=== PATIENT | male | born 1980 | race Hispanic/Latino ===

== ENCOUNTER 2018-07-23 05:08 | Emergency (ER) | payer SELFPAY ==
[2018-07-23] MEDS ORDERED: METHYLPREDNISOLONE 125 MG INJ ONE (05:38)
[2018-07-23] MEDS ORDERED: DIPHENHYDRAMINE 50 MG/ML VIAL ONE (05:38)
[2018-07-23] MEDS ORDERED: FAMOTIDINE 20 MG/2 ML VIAL IV ONE (05:39)
--- NOTE | 2018-07-23 07:05 | ER ---
Nurse's Notes [facility] Name: Francois Larson II Age: 37 yrs Sex: Male : 1980 Arrival Date: 07/23/2018 Time: 05:09 Bed 19 Private MD: Diagnosis: Urticaria, unspecified Presentation: 07/23 05:14 Presenting complaint: Patient states: I have had this rash off and on for 3 weeks but ed1 this morning it got really bad and I just can't stand the itching. Transition of care: patient was not received from another setting of care. Onset: The symptoms/episode began/occurred gradually, 3 week(s) ago, and became worse today. Anaphylaxis evaluation, the patient reports or I have noted the following symptoms which indicate a significant risk of anaphylaxis: no signs or symptoms of anaphylaxis were noted. Onset of symptoms was July 23, 2018. Onset of symptoms. Risk Assessment: Do you want to hurt yourself or someone else? Patient reports no desire to harm self or others. Initial Sepsis Screen: Does the patient meet any 2 criteria? No. Patient's initial sepsis screen is negative. Does the patient have a suspected source of infection? No. Patient's initial sepsis screen is negative. Care prior to arrival: Medication(s) given: Benadryl. 05:14 Method Of Arrival: Ambulatory ed1 05:14 Acuity: WILLIAM 2 ed1 Triage Assessment: 05:16 General: Appears uncomfortable, Behavior is calm, cooperative. Pain: Complains of pain ed1 in scalp Pain currently is 6 out of 10 on a pain scale. Quality of pain is described as aching, Pain began 1 day ago. EENT: Throat is reddened. Neuro: Level of Consciousness is awake, alert, obeys commands, Oriented to person, place, time, situation. Cardiovascular: Denies chest pain, Heart tones S1 S2 present. Respiratory: Airway is patent Respiratory effort is even, unlabored, Respiratory pattern is regular, symmetrical, Breath sounds are clear bilaterally. GI: Patient currently denies diarrhea, nausea, vomiting. : No signs and/or symptoms were reported regarding the genitourinary system. Derm: Rash noted that is red, raised, urticaria, on chest, abdomen, pelvis, right arm and left arm. Musculoskeletal: Circulation, motion, and sensation intact. Range of motion: intact in all extremities. Historical: - Allergies: 05:16 No Known Allergies; ed1 - Home Meds: 05:16 None [Active]; ed1 - PMHx: 05:16 None; ed1 - PSHx: 05:16 None; ed1 - Immunization history:: Adult Immunizations. - Social history:: Smoking status: Patient uses tobacco products, vap pen. - Ebola Screening: : Patient negative for fever greater than or equal to 101.5 degrees Fahrenheit, and additional compatible Ebola Virus Disease symptoms Patient denies exposure to infectious person Patient denies travel to an Ebola-affected area in the 21 days before illness onset No symptoms or risks identified at this time. Screenin:20 Abuse screen: Denies threats or abuse. Denies injuries from another. Nutritional ed1 screening: No deficits noted. Tuberculosis screening: No symptoms or risk factors identified. Fall Risk None identified. Assessment: 05:20 General: See triage assessment. Respiratory: Reports shortness of breath at rest Airway ed1 is patent Respiratory effort is even, unlabored, Respiratory pattern is regular, symmetrical, Breath sounds are clear bilaterally. Denies cough. 06:14 Reassessment: Fernanda (Mother)- [phone]. ed1 06:15 Reassessment: Patient and/or family updated on plan of care and expected duration. Pain ed1 level reassessed. Patient is alert, oriented x 3, equal unlabored respirations, skin warm/dry/pink. Patient states feeling better. Patient states symptoms have improved. 07:12 Reassessment: Patient appears in no apparent distress at this time. Patient and/or em family updated on plan of care and expected duration. Pain level reassessed. Patient is alert, oriented x 3, equal unlabored respirations, skin warm/dry/pink. Patient states symptoms have improved. Vital Signs: 05:16 BP 130 / 83; Pulse 86; Resp 20; Temp 97.2; Pulse Ox 97% on R/A; Weight 92.99 kg; Height ed1 5 ft. 11 in. (180.34 cm); Pain 6/10; 06:15 BP 107 / 80; Pulse 66; Resp 13; Pulse Ox 93% on R/A; Pain 6/10; ed1 07:12 BP 108 / 65; Pulse 66; Resp 18; Pulse Ox 99% on R/A; em 05:16 Body Mass Index 28.59 (92.99 kg, 180.34 cm) ed1 ED Course: 05:09 Patient arrived in ED. do 05:14 Jennifer Pitts RN is Primary Nurse. ed1 05:15 Andrew Shine MD is Attending Physician. tw4 05:16 Triage completed. ed1 05:16 Arm band placed on right wrist. ed1 05:20 Patient has correct armband on for positive identification. Placed in gown. Bed in low ed1 position. Call light in reach. Side rails up X 1. Adult w/ patient. quality assurance monitor on. Pulse ox on. NIBP on. 05:20 Initial lab(s) drawn, by me, held in ED. Inserted saline lock: 22 gauge in right wrist, ed1 using aseptic technique. Blood collected. 07:00 Primary Nurse role handed off by Jennifer Pitts RN ed1 07:05 Silverio Magallanes LVN is Primary Nurse. em 07:18 No provider procedures requiring assistance completed. IV discontinued, intact, em bleeding controlled, No redness/swelling at site. Pressure dressing applied. Administered Medications: 05:39 Drug: SOLU-Medrol 125 mg Route: IVP; Site: right wrist; ed1 06:16 Follow up: Response: No adverse reaction; Marked relief of symptoms ed1 05:40 Drug: Benadryl 50 mg Route: IVP; Site: right wrist; ed1 06:16 Follow up: Response: No adverse reaction; Marked relief of symptoms ed1 05:40 Drug: Pepcid 20 mg Route: IVP; Site: right wrist; ed1 06:16 Follow up: Response: No adverse reaction; Marked relief of symptoms ed1 Outcome: 07:04 Discharge ordered by . tw4 07:18 Discharged to home ambulatory. em 07:18 Condition: good 07:18 Discharge instructions given to patient, Instructed on discharge instructions, follow up and referral plans. medication usage, Demonstrated understanding of instructions, follow-up care, medications, Prescriptions given X 1. 07:24 Patient left the ED. em Signatures: Silverio Magallanes LVN LVN em Jennifer Pitts RN RN ed1 Candi Lauren Terrence, MD MD tw4
--- NOTE | 2018-07-23 07:05 | EDPHYS ---
Physician Documentation [facility] Name: Francois Larson II Age: 37 yrs Sex: Male : 1980 Arrival Date: 07/23/2018 Time: 05:09 Bed 19 Private MD: ED Physician Andrew Shine HPI: 07/23 05:59 This 37 yrs old Male presents to ER via Ambulatory with complaints of Allergic tw4 Reaction. 05:59 The patient presents with itching. Associated signs and symptoms: The patient has no tw4 apparent associated signs or symptoms. Possible causes: The patient has no known obvious cause for the symptoms. At home the patient or guardian has treated the symptoms with nothing. The patient has not experienced similar symptoms in the past. 05:59 Onset: The symptoms/episode began/occurred 4 week(s) ago. tw4 Historical: - Allergies: 05:16 No Known Allergies; ed1 - Home Meds: 05:16 None [Active]; ed1 - PMHx: 05:16 None; ed1 - PSHx: 05:16 None; ed1 - Immunization history:: Adult Immunizations. - Social history:: Smoking status: Patient uses tobacco products, vap pen. - Ebola Screening: : Patient negative for fever greater than or equal to 101.5 degrees Fahrenheit, and additional compatible Ebola Virus Disease symptoms Patient denies exposure to infectious person Patient denies travel to an Ebola-affected area in the 21 days before illness onset No symptoms or risks identified at this time. ROS: 05:59 Constitutional: Negative for fever, chills, and weight loss, Eyes: Negative for injury, tw4 pain, redness, and discharge, Cardiovascular: Negative for chest pain, palpitations, and edema, Respiratory: Negative for shortness of breath, cough, wheezing, and pleuritic chest pain, Abdomen/GI: Negative for abdominal pain, nausea, vomiting, diarrhea, and constipation, Back: Negative for injury and pain, MS/Extremity: Negative for injury and deformity. 05:59 Skin: Positive for rash, diffusely. Exam: 06:02 Constitutional: This is a well developed, well nourished patient who is awake, alert, tw4 and in no acute distress. Head/Face: Normocephalic, atraumatic. Neck: Trachea midline, no thyromegaly or masses palpated, and no cervical lymphadenopathy. Supple, full range of motion without nuchal rigidity, or vertebral point tenderness. No Meningismus. Chest/axilla: Normal chest wall appearance and motion. Nontender with no deformity. No lesions are appreciated. Cardiovascular: Regular rate and rhythm with a normal S1 and S2. No gallops, murmurs, or rubs. Normal PMI, no JVD. No pulse deficits. Respiratory: Lungs have equal breath sounds bilaterally, clear to auscultation and percussion. No rales, rhonchi or wheezes noted. No increased work of breathing, no retractions or nasal flaring. Abdomen/GI: Soft, non-tender, with normal bowel sounds. No distension or tympany. No guarding or rebound. No evidence of tenderness throughout. Back: No spinal tenderness. No costovertebral tenderness. Full range of motion. 06:02 Skin: urticaria. Vital Signs: 05:16 BP 130 / 83; Pulse 86; Resp 20; Temp 97.2; Pulse Ox 97% on R/A; Weight 92.99 kg; Height ed1 5 ft. 11 in. (180.34 cm); Pain 6/10; 06:15 BP 107 / 80; Pulse 66; Resp 13; Pulse Ox 93% on R/A; Pain 6/10; ed1 07:12 BP 108 / 65; Pulse 66; Resp 18; Pulse Ox 99% on R/A; em 05:16 Body Mass Index 28.59 (92.99 kg, 180.34 cm) ed1 MDM: 05:15 Patient medically screened. tw4 Administered Medications: 05:39 Drug: SOLU-Medrol 125 mg Route: IVP; Site: right wrist; ed1 06:16 Follow up: Response: No adverse reaction; Marked relief of symptoms ed1 05:40 Drug: Benadryl 50 mg Route: IVP; Site: right wrist; ed1 06:16 Follow up: Response: No adverse reaction; Marked relief of symptoms ed1 05:40 Drug: Pepcid 20 mg Route: IVP; Site: right wrist; ed1 06:16 Follow up: Response: No adverse reaction; Marked relief of symptoms ed1 Disposition: 07/23/18 07:04 Discharged to Home. Impression: Urticaria, unspecified. - Condition is Stable. - Discharge Instructions: Allergies, Adult. - Prescriptions for Medrol (Boyd) 4 mg Oral Tablets, Dose Pack - take 1 tablet by ORAL route as directed - follow package instructions; 1 packet. - Medication Reconciliation Form, Thank You Letter, Antibiotic Education, Prescription Opioid Use form. - Follow up: Private Physician; When: Upon discharge from the Emergency Department; Reason: If symptoms return, Recheck today's complaints, Continuance of care. - Problem is new. - Symptoms have improved. Signatures: Silverio Magallanes, MASTER AUTOMOTIVE GLASS TECHNICIAN MASTER AUTOMOTIVE GLASS TECHNICIAN em Jennifer Pitts RN RN ed1 Andrew Shine MD MD tw4 Corrections: (The following items were deleted from the chart) 06:02 05:59 Onset: The symptoms/episode began/occurred today, tw 07:24 07:04 07/23/2018 07:04 Discharged to Home. Impression: Urticaria, unspecified. em Condition is Stable. Forms are Medication Reconciliation Form, Thank You Letter, Antibiotic Education, Prescription Opioid Use. Follow up: Private Physician; When: Upon discharge from the Emergency Department; Reason: If symptoms return, Recheck today's complaints, Continuance of care. Problem is new. Symptoms have improved. tw4
== END 2018-07-23 07:24 | disposition home or self-care (01) ==
LOC: ER 05:08
DX: L50.9 Urticaria, unspecified (principal); Z72.0 Tobacco use
CPT/HCPCS: 96374; 96375; 99284; J2930

== ENCOUNTER 2020-02-07 10:13 | Emergency (ER) | payer SELFPAY ==
[2020-02-07 10:53] LABS: Absolute Lymphocytes (CBC) 2.7 K/uL (0.7-4.9); Basophils % 0.3 % (0-1.3); Hematocrit 55.1 % (39.6-49.0); Lymphocytes % 19.7 % (15.3-44.8); MPV 7.6 fL (7.6-11.3); RBC Red Blood Cell Count 5.84 M/uL (4.33-5.43)
[2020-02-07] MEDS ORDERED: ONDANSETRON 4 MG/2 ML VIAL ONE (10:56)
[2020-02-07] MEDS ORDERED: NA CHLORIDE 0.9% 1,000 ML ONE (10:56)
[2020-02-07] MEDS ORDERED: MORPHINE 4 MG/ML SYR ONE (10:56)
[2020-02-07 11:20] LABS: Bilirubin Direct 0.4 mg/dL (0-0.2); Bilirubin Total 1.8 mg/dL (0.2-1.0); Potassium 4.1 mmol/L (3.5-5.1); Protein, Total 8.2 g/dL (6.4-8.2)
[2020-02-07] MEDS ORDERED: HYDROMORPHONE HCL 1 MG/ML INJ ONE (12:09)
--- NOTE | 2020-02-07 13:04 | RAD REPORT ---
EXAM DESCRIPTION: CTAbdomen Pelvis W Contrast - 02/07/2020 12:16 pm CLINICAL HISTORY: Abdominal pain. ABD PAIN COMPARISON: No comparisons TECHNIQUE: Biphasic CT imaging of the abdomen and pelvis was performed with 100 ml non-ionic IV cont rast. All CT scans are performed using dose optimization technique as appropriate and may include automated exposure control or mA/KV adjustment according to patient size. FINDINGS: The lung bases are clear. The liver contains a vague 24 mm low-density lesion in the inferolateral right lobe, nonspecific but likely benign hemangioma or similar lesion. Spleen, pancreas, adrenal glands and kidneys are within n ormal limits. No bowel obstruction, free air, free fluid or abscess. The appendix is normal. Mild sigmoid divertic ulosis coli without diverticulitis. No evidence of significant lymphadenopathy. No suspicious bony findings. IMPRESSION: No acute intra-abdominal or pelvic finding.
--- NOTE | 2020-02-07 13:26 | ER ---
Nurse's Notes [facility] Name: Francois Larson II Age: 39 yrs Sex: Male : 1980 Arrival Date: 02/07/2020 Time: 10:14 Bed 7 Private MD: Diagnosis: Generalized abdominal pain Presentation: 02/06 10:14 Chief complaint: Patient states: abd pain x 1 hour. Coronavirus screen: Client denies ss travel out of the [place] in the last 14 days. Ebola Screen: Patient denies exposure to infectious person. Patient denies travel to an Ebola-affected area in the 21 days before illness onset. Initial Sepsis Screen: Does the patient meet any 2 criteria? No. Patient's initial sepsis screen is negative. Does the patient have a suspected source of infection? No. Patient's initial sepsis screen is negative. Risk Assessment: Do you want to hurt yourself or someone else? Patient reports no desire to harm self or others. Onset of symptoms was February 07, 2020. 10:14 Method Of Arrival: Law Enforcement ss 10:14 Acuity: WILLIAM 3 ss Triage Assessment: 10:40 General: Behavior is cooperative. vg1 Historical: - Allergies: 10:17 No Known Allergies; ss - Home Meds: 10:17 Unable to obtain [Active]; ss - PMHx: 10:17 Seizures; ss - PSHx: 10:17 None; ss - Immunization history:: Adult Immunizations up to date. - Social history:: Smoking status: Patient reports the use of cigarette tobacco products, smokes one-half pack cigarettes per day, Patient uses alcohol, but reports only rare drinking. Patient/guardian denies using street drugs, The patient lives with family. - Family history:: not pertinent. Screenin:40 Abuse screen: Denies threats or abuse. Nutritional screening: No deficits noted. vg1 Tuberculosis screening: No symptoms or risk factors identified. Fall Risk IV access (20 points). Ambulatory Aid- None/Bed Rest/Nurse Assist (0 pts). Gait- Normal/Bed Rest/Wheelchair (0 pts) Total Matthews Fall Scale indicates No Risk (0-24 pts). Assessment: 10:18 Reassessment: accompanied by [place] [employer] in forensic restraints/ cuffs. ss 10:40 General: Appears uncomfortable. Pain: Complains of pain in abdomen Pain currently is 10 vg1 out of 10 on a pain scale. Pain began 2-3 days ago. Noted to be grimacing, guarding. Neuro: Level of Consciousness is awake, alert, obeys commands, Oriented to person, place, time, situation. Cardiovascular: Patient's skin is warm and dry. Respiratory: Airway is patent Respiratory effort is even, unlabored, Respiratory pattern is regular, symmetrical. GI: Reports nausea, denies diarrhea, and states last BM was about a day in a half ago and states BM was 'kind of black'. : No signs and/or symptoms were reported regarding the genitourinary system. EENT: No signs and/or symptoms were reported regarding the EENT system. Derm: Skin is pink, warm \\T\\ dry. Musculoskeletal: Capillary refill < 3 seconds, in bilateral fingers. Range of motion: intact in all extremities. 11:17 Reassessment: No changes from previously documented assessment. Patient and/or family vg1 updated on plan of care and expected duration. Pain level reassessed. Patient is alert, oriented x 3, equal unlabored respirations, skin warm/dry/pink. Patient states pain is still 10/10. Patient also stated that he is on amoxicillin due to an abscess on the inside of right mouth. 11:20 Reassessment: Called CT to let them know patient was done with oral contrast. vg1 12:55 Reassessment: No changes from previously documented assessment. Patient and/or family vg1 updated on plan of care and expected duration. Pain level reassessed. Patient is alert, oriented x 3, equal unlabored respirations, skin warm/dry/pink. Patient states pain has not changed from earlier today. States pain is still 10/10 and it feels "sharp". Notified Provider. Vital Signs: 10:14 BP 112 / 79; Pulse 87; Resp 15; Temp 98.1(TE); Pulse Ox 99% on R/A; Weight 74.84 kg; ss Height 5 ft. 11 in. (180.34 cm); Pain 10/10; 11:15 BP 121 / 89; Pulse 80; Resp 14; Pulse Ox 100% on R/A; vg1 11:45 BP 121 / 91; Pulse 81; Resp 14; Pulse Ox 100% on R/A; vg1 12:15 BP 108 / 65; Pulse 90; Resp 16; Pulse Ox 100% on R/A; vg1 13:15 BP 108 / 73; Pulse 88; Resp 18; Pulse Ox 99% on R/A; vg1 10:14 Body Mass Index 23.01 (74.84 kg, 180.34 cm) ss ED Course: 10:14 Patient arrived in ED. ss 10:16 Triage completed. ss 10:17 Arm band placed on right wrist. ss 10:18 Libertad Brown FNP-C [facility]. kb 10:18 Manoj Dawson MD is Attending Physician. kb 10:23 Astrid Yanez RN is Primary Nurse. vg1 10:45 Patient has correct armband on for positive identification. Bed in low position. Call vg1 light in reach. Side rails up X 1. Adult w/ patient. environmental monitoring technician on. Pulse ox on. 10:48 Basic Metabolic Panel Sent. zb 10:48 CBC with Diff Sent. zb 10:49 Inserted saline lock: 20 gauge in right forearm, using aseptic technique. zb 11:52 Missed attempt(s): 20 gauge in right antecubital area. Bleeding controlled, band aid sv applied, catheter tip intact. 11:56 Inserted saline lock: 22 gauge in right antecubital area, using aseptic technique. sv ,using aseptic technique. diffusics Flushed right antecubital with 2 ml normal saline. 12:16 CT Abd/Pelvis - PO and IV Contrast In Process Unspecified. EDMS 13:35 No provider procedures requiring assistance completed. IV discontinued, intact, vg1 bleeding controlled, No redness/swelling at site. Pressure dressing applied. Administered Medications: 10:50 Drug: Zofran (Ondansetron) 4 mg Route: IVP; Site: right antecubital; vg1 11:20 Follow up: Response: No adverse reaction; Nausea unchanged vg1 10:50 Drug: NS 0.9% 1000 ml Route: IV; Rate: 1000 ml; Site: right antecubital; vg1 11:21 Follow up: Response: No adverse reaction vg1 11:57 Follow up: IV SiteChange: right antecubital; IV SiteChange Reason: Infiltration sv 10:50 Drug: morphine 4 mg {Note: RASS 1.} Route: IVP; Site: right antecubital; vg1 11:21 Follow up: Response: No adverse reaction; Pain is unchanged, physician notified vg1 12:00 Drug: Dilaudid 1 mg {Note: RASS 1.} Route: IVP; Site: right antecubital; vg1 13:29 Follow up: Response: No adverse reaction; Pain is unchanged, physician notified; RASS: vg1 Alert and Calm (0) Outcome: 13:25 Discharge ordered by . haydee 13:35 Discharged to Law Enforcement vg1 13:35 Condition: stable 13:35 Discharge instructions given to patient, police, Instructed on discharge instructions, follow up and referral plans. medication usage, Demonstrated understanding of instructions, follow-up care, medications, Prescriptions given X 1. 13:39 Patient left the ED. vg1 Signatures: Dispatcher [employer] EDMS Libertad Brown, FREDDIE-C MANAGER PROVIDER RELATIONS-Huong Rae, RN RN Ailyn Cage RN RN ss Alzahri, Mohammad, MD MD ma2 Garcia, Victoria, RN RN sally1 Corrine Fernández RN RN zb Corrections: (The following items were deleted from the chart) 11:25 10:40 Pain: Complains of pain in abdomen Pain currently is 10 out of 10 on a pain vg1 scale. Pain began 2-3 days ago. vg1
--- NOTE | 2020-02-07 13:26 | EDPHYS ---
Physician Documentation [facility] Name: Francois Larson II Age: 39 yrs Sex: Male : 1980 Arrival Date: 02/07/2020 Time: 10:14 Bed 7 Private MD: ED Physician Manoj Dawson HPI: 02/06 10:49 This 39 yrs old Male presents to ER via [employer] with complaints of ma2 Abdominal Pain. 10:49 The patient presents with abdominal pain. Onset: The symptoms/episode began/occurred ma2 gradually, 1 day(s) ago. Associated signs and symptoms: Pertinent positives: Pertinent negatives: anorexia, diarrhea, dysuria, fever. Severity of pain: At its worst the pain was moderate in the emergency department the pain is unchanged. The patient has experienced similar episodes in the past. Historical: - Allergies: 10:17 No Known Allergies; ss - Home Meds: 10:17 Unable to obtain [Active]; ss - PMHx: 10:17 Seizures; ss - PSHx: 10:17 None; ss - Immunization history:: Adult Immunizations up to date. - Social history:: Smoking status: Patient reports the use of cigarette tobacco products, smokes one-half pack cigarettes per day, Patient uses alcohol, but reports only rare drinking. Patient/guardian denies using street drugs, The patient lives with family. - Family history:: not pertinent. ROS: 10:49 Constitutional: Negative for fever, chills, and weight loss. ma2 10:49 All other systems are negative. Exam: 10:49 Constitutional: This is a well developed, well nourished patient who is awake, alert, ma2 and in no acute distress. Chest/axilla: Normal chest wall appearance and motion. Nontender with no deformity. No lesions are appreciated. Cardiovascular: Regular rate and rhythm with a normal S1 and S2. No gallops, murmurs, or rubs. Normal PMI, no JVD. No pulse deficits. Respiratory: Lungs have equal breath sounds bilaterally, clear to auscultation and percussion. No rales, rhonchi or wheezes noted. No increased work of breathing, no retractions or nasal flaring. Abdomen/GI: Soft, non-tender, with normal bowel sounds. No distension or tympany. No guarding or rebound. No evidence of tenderness throughout. MS/ Extremity: Pulses equal, no cyanosis. Neurovascular intact. Full, normal range of motion. Neuro: Awake and alert, GCS 15, oriented to person, place, time, and situation. Cranial nerves II-XII grossly intact. Motor strength 5/5 in all extremities. Sensory grossly intact. Cerebellar exam normal. Normal gait. Vital Signs: 10:14 BP 112 / 79; Pulse 87; Resp 15; Temp 98.1(TE); Pulse Ox 99% on R/A; Weight 74.84 kg; ss Height 5 ft. 11 in. (180.34 cm); Pain 10/10; 11:15 BP 121 / 89; Pulse 80; Resp 14; Pulse Ox 100% on R/A; vg1 11:45 BP 121 / 91; Pulse 81; Resp 14; Pulse Ox 100% on R/A; vg1 12:15 BP 108 / 65; Pulse 90; Resp 16; Pulse Ox 100% on R/A; vg1 13:15 BP 108 / 73; Pulse 88; Resp 18; Pulse Ox 99% on R/A; vg1 10:14 Body Mass Index 23.01 (74.84 kg, 180.34 cm) ss MDM: 10:18 Patient medically screened. kb 10:49 Differential diagnosis: diverticulitis, gastritis, gastroesophageal reflux disease, ma2 Irritable bowel syndrome. Data reviewed: vital signs, EMS record. Counseling: I had a detailed discussion with the patient and/or guardian regarding: the historical points, exam findings, and any diagnostic results supporting the discharge/admit diagnosis, the presence of at least one elevated blood pressure reading (>120/80) during this emergency department visit, the need for outpatient follow up. Response to treatment: the patient's symptoms have resolved after treatment. 02/06 10:30 Order name: Basic Metabolic Panel; Complete Time: 11:52 ma2 02/06 10:30 Order name: CBC with Diff; Complete Time: 11: ma2 02/06 10:30 Order name: Hepatic Function; Complete Time: 11:52 ma2 02/06 10:30 Order name: Lipase; Complete Time: 11:52 ma2 02/06 10:30 Order name: CT Abd/Pelvis - PO and IV Contrast; Complete Time: 13:25 ma2 02/06 10:30 Order name: IV Saline Lock; Complete Time: 10:48 ma2 02/06 10:30 Order name: NPO; Complete Time: 11:21 ma2 Administered Medications: 10:50 Drug: Zofran (Ondansetron) 4 mg Route: IVP; Site: right antecubital; vg1 11:20 Follow up: Response: No adverse reaction; Nausea unchanged vg1 10:50 Drug: NS 0.9% 1000 ml Route: IV; Rate: 1000 ml; Site: right antecubital; vg1 11:21 Follow up: Response: No adverse reaction vg1 11:57 Follow up: IV SiteChange: right antecubital; IV SiteChange Reason: Infiltration sv 10:50 Drug: morphine 4 mg {Note: RASS 1.} Route: IVP; Site: right antecubital; vg1 11:21 Follow up: Response: No adverse reaction; Pain is unchanged, physician notified vg1 12:00 Drug: Dilaudid 1 mg {Note: RASS 1.} Route: IVP; Site: right antecubital; vg1 13:29 Follow up: Response: No adverse reaction; Pain is unchanged, physician notified; RASS: vg1 Alert and Calm (0) Disposition: 02/07/20 13:25 Discharged to Home. Impression: Generalized abdominal pain. - Condition is Stable. - Discharge Instructions: Abdominal Pain, Adult. - Prescriptions for Pepcid 20 mg Oral Tablet - take 1 tablet by ORAL route once daily for 10 days; 10 tablet. - Medication Reconciliation Form, Thank You Letter, Antibiotic Education, Prescription Opioid Use form. - Follow up: Private Physician; When: Tomorrow; Reason: Continuance of care. Signatures: Dispatcher [employer] EDLibertad Yoo, FREDDIE-C [employer] PREPARER-CkAilyn Tirado RN RN ss Manoj Dawson MD MD ma2 Astrid Yanez RN RN vg1 Huong Howard RN sv Corrections: (The following items were deleted from the chart) 13:39 13:25 02/07/2020 13:25 Discharged to Home. Impression: Generalized abdominal pain. vg1 Condition is Stable. Discharge Instructions: Abdominal Pain, Adult. Forms are Medication Reconciliation Form, Thank You Letter, Antibiotic Education, Prescription Opioid Use. Follow up: Private Physician; When: Tomorrow; Reason: Continuance of care. ma2
[2020-02-07 13:51] VITALS: TEMP 98.1
[2020-02-07 13:52] VITALS: BP 121/89; O2SAT 100
== END 2020-02-07 13:39 | disposition home or self-care (01) ==
LOC: ER 10:13
DX: R10.84 Generalized abdominal pain (principal); F17.210 Nicotine dependence, cigarettes, uncomplicated
CPT/HCPCS: 36415; 74177; 80048; 80076; 83690; 85025; J1170; J2405; J7030; Q9967